=== PATIENT | male | born 1975 | race Caucasian/White ===

== ENCOUNTER 2017-08-14 06:25 | Emergency (ER) | payer OTHER ==
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
[2017-08-14 06:36] VITALS: TEMP 99.1; BMI 30.8
[2017-08-14] MEDS ORDERED: IBUPROFEN 600 MG TABLET (FP) PO ONE (07:16)
[2017-08-14 07:32] LABS: BASOPHIL 0.3 % (0-2.0); EOSINOPHIL 3.3 % (0-4.5); MCH 31.2 pg (25.7-33.7); MCHC 34.2 g/dl (32.0-35.9); MEAN CELL VOLUME 91.2 fl (80-96); MEAN PLT VOLUME 9.5 fl (7.5-11.1); PLATELET COUNT 186 K/MM3 (134-434); WHITE BLOOD COUNT 5.5 K/mm3 (4.0-10.8)
[2017-08-14 07:38] LABS: ALBUMIN 4.2 g/dl (3.5-5.0); ALK PHOS 39 U/L (32-92); ANION GAP 6 (8-16); BILIRUBIN,TOTAL 0.6 mg/dl (0.2-1.0); CALCIUM 9.6 mg/dl (8.4-10.2); CO2 27 mmol/L (22-28); CPK 114 IU/L (39-308); CREATININE 1.5 mg/dl (0.6-1.3); GLUCOSE,RANDOM 101 mg/dl (74-106); SGOT/AST 19 U/L (10-42); SGPT/ALT 32 U/L (10-40); TOT PROT 6.7 g/dl (6.4-8.3)
[2017-08-14 07:42] LABS: TROPONIN I (DFP) < 0.03 ng/ml (0.03-0.50)
[2017-08-14 07:53] VITALS: BP 137/87; PULSE 80
--- NOTE | 2017-08-14 08:02 | PDOC ---
*Physical Exam - Vital Signs Last Vital Signs Temp Pulse Resp BP Pulse Ox 99.1 F 80 16 137/87 95 08/14/17 06:32 08/14/17 07:52 08/14/17 07:52 08/14/17 07:52 08/14/17 07:52 - Physical Exam General Appearance: Yes: Appropriately Dressed Neck: positive: Trachea midline Respiratory/Chest: positive: Lungs Clear, Normal Breath Sounds Cardiovascular: positive: Regular Rhythm, Regular Rate, S1, S2 Musculoskeletal: positive: Normal Inspection, Other (left ring finger with eccymosis. ttp at dip FROM. tendons intact nv intact) ED Treatment Course - LABORATORY CBC & Chemistry Diagram: 08/14/17 06:55 08/14/17 06:55 - ADDITIONAL ORDERS Additional order review: Laboratory Results 08/14/17 06:55 Sodium 136 Potassium 4.3 Chloride 103 Carbon Dioxide 27 Anion Gap 6 L BUN 22 H Creatinine 1.5 H Creat Clearance w eGFR 52.10 Random Glucose 101 Calcium 9.6 Total Bilirubin 0.6 AST 19 ALT 32 Alkaline Phosphatase 39 Creatine Kinase 114 Troponin I < 0.03 L Total Protein 6.7 Albumin 4.2 08/14/17 06:55 RBC 5.03 MCV 91.2 MCHC 34.2 RDW 12.0 MPV 9.5 Neutrophils % 67.0 Lymphocytes % 20.5 Monocytes % 8.9 Eosinophils % 3.3 Basophils % 0.3 - Medications Given in the ED: ED Medications Discontinued Medications Generic Name Dose Route Start Last Admin Trade Name Yaritza PRN Reason Stop Dose Admin Ibuprofen 600 mg 08/14/17 07:16 08/14/17 07:19 Motrin - PO 08/14/17 07:17 600 mg ONCE ONE Administration Medical Decision Making - Medical Decision Making 08/14/17 07:55 labs unremarkable. wbc normal. trop negative. ekg unremarkable. cxr no fx. prominent fissure right lung. pt no fever chill cough afebrile and wbc normal. eric alex home *DC/Admit/Observation/Transfer Diagnosis at time of Disposition: Chest wall pain - Discharge Dispostion Disposition: HOME Condition at time of disposition: Improved - Prescriptions Prescriptions: Ibuprofen [Motrin -] 600 mg PO TID #90 tablet - Patient Instructions Printed Discharge Instructions: DI for Atypical Chest Pain Additional Instructions: you can ice your finger to help reduce swelling. take ibuprofen 600 mg every 8 hours as needed for both chest pain and finger pain. be sure to use the incentive spirometer 10 times every 2 hours while awake for one week. you need to take deep breaths to avoid getting infection in your lung. return for shortness of breath, fever, or any concerns. follow up with your regular doctor.
--- NOTE | 2017-08-15 18:21 | EKG ---
Test Reason : Blood Pressure : / mmHG Vent. Rate : 094 BPM Atrial Rate : 094 BPM P-R Int : 160 ms QRS Dur : 082 ms QT Int : 340 ms P-R-T Axes : 041 016 016 degrees QTc Int : 425 ms NORMAL SINUS RHYTHM NORMAL ECG NO PREVIOUS ECGS AVAILABLE REPEAT EKG IF CLINICALLY INDICATED Confirmed by DAVID BONILLA MD ([id number] on 08/15/2017 6:21:00 PM Referred By: MD PEREZ Confirmed By:DAVID BONILLA MD
== END 2017-08-14 08:57 | disposition home or self-care (01) ==
LOC: FER 06:25
DX: R07.89 Other chest pain (principal)
CPT/HCPCS: 36415; 71101-TC; 73130-TC-LT; 80053; 82550; 84484; 85025; 93005; 99281-25